=== PATIENT | female | born 1990 | race Hispanic/Latino ===

== ENCOUNTER 2018-06-02 11:30 | Outpatient (CLI) | payer BC, OTHER ==
[2018-06-03 14:59] LABS: Collection Duration 24 hrs; Urine Total Volume 1975 mL (600-1600)
[2018-06-03 15:17] LABS: Protein - 24 Hr 198 mg/24 hr (Less than 300); Protein, Urine 10 mg/dL (1-14)
== END 2018-06-02 11:31 | disposition home or self-care (01) ==
LOC: MADLAB 11:30
PROVIDERS: ATTEND Family Medicine
DX: O09.893 Supervision of other high risk pregnancies, third trimester (principal)
CPT/HCPCS: 84156